=== PATIENT | female | born 2000 | race Caucasian/White ===

== ENCOUNTER → 2020-04-23 15:17 | Outpatient (CLI) | payer OTHER, SELFPAY ==
[2020-04-27 03:06] LABS: Chlamydia By Nucleic Acid AMP Negative (Negative)
[2020-04-27 14:50] LABS: HPV Reflexed? NOT INDICATED
[2020-04-27 15:11] LABS: Gonococcus By Nucleic Acid AMP Negative (Negative)
== END ==
PROVIDERS: Visit Provider Obstetrics & Gynecology
DX: Z34.81 Encounter for supervision of other normal pregnancy, first trimester (principal); Z12.4 Encounter for screening for malignant neoplasm of cervix; Z11.3 Encounter for screening for infections with a predominantly sexual mode of transmission
CPT/HCPCS: 87491; 87591; 88175; G0145

== ENCOUNTER → 2020-04-30 11:23 | Outpatient (CLI) | payer OTHER, SELFPAY ==
[2020-04-30 13:34] LABS: Absolute Lymphocyte Count 1.66 X10^3/uL (0.83-4.51); Absolute Neutrophil Count 5.7 X10^3/uL (2.0-7.7); Basophil# 0.04 X10^3/uL; Basophil% 0.5 % (0-1); Eosinophil# 0.11 X10^3/uL; Eosinophils% 1.3 % (0-5); Lymphocyte # 1.66 X10^3/ul (4.0); Lymphocyte % 20.4 % (19-41); Mean Corp Hgb Conc 33.3 g/dL (32-36); Mean Corpuscular Hgb 28.6 pg (27.0-32.0); Mean Corpuscular Volume 85.9 fL (81-99); Mean Platelet Vol. 10.1 fl (6.2-12.0); Monocyte# 0.66 X10^3/uL; Monocyte% 8.1 % (0-10); NRBC Flagged by Analyzer 0 % (0-5); Neutrophil # 5.65 X10^3/uL (2.7-7.7); Neutrophil % 69.3 % (47-70); Platelet Count 272 K/mm3 (150-450); RBC Distribution Width CV 12.7 % (11.6-14.6); RBC Distribution Width SD 39.5 fl (35.1-43.9); Red Blood Count 4.54 M/mm3 (4.2-5.4); White Blood Count 8.2 K/mm3 (4.4-11.0)
[2020-04-30 14:23] LABS: HIV - WCH Non-Reactive (Nonreactive); Hepatitis B Surface Antigen Non-Reactive (Nonreactive); Hepatitis C Antibody Non-Reactive (Nonreactive); Rubella IgG Reactive (Nonreactive); Syphilis Antibodies Non-reactive
== END ==
PROVIDERS: Visit Provider Obstetrics & Gynecology
DX: Z34.81 Encounter for supervision of other normal pregnancy, first trimester (principal)
CPT/HCPCS: 36415; 85025; 86703; 86762; 86780; 86803; 87086; 87088; 87340

== ENCOUNTER → 2020-09-14 13:30 | Outpatient (CLI) | payer OTHER, SELFPAY ==
[2020-09-14 15:59] LABS: Hematocrit 29.9 % (37-47); Hemoglobin 9.8 g/dL (12.0-15.0); Mean Corp Hgb Conc 32.8 g/dL (32-36); Mean Corpuscular Hgb 28.6 pg (27.0-32.0); Mean Corpuscular Volume 87.2 fL (81-99); Mean Platelet Vol. 9.9 fl (6.2-12.0); Platelet Count 269 K/mm3 (150-450); RBC Distribution Width CV 13.5 % (11.6-14.6); RBC Distribution Width SD 42.6 fl (35.1-43.9); Red Blood Count 3.43 M/mm3 (4.2-5.4); White Blood Count 10.6 K/mm3 (4.4-11.0)
[2020-09-14 16:29] LABS: Glucose Challenge Gest 1H 50g 122 mg/dL (70-140)
== END ==
PROVIDERS: Visit Provider Obstetrics & Gynecology
DX: Z34.83 Encounter for supervision of other normal pregnancy, third trimester (principal)
CPT/HCPCS: 36415; 82950; 85027

== ENCOUNTER → 2020-11-09 | Outpatient (CLI) | payer OTHER, SELFPAY | END | disposition home or self-care (01) | LOC: LABSPEC 14:56 | PROVIDERS: Visit Provider Obstetrics & Gynecology | DX: Z36.85 Encounter for antenatal screening for Streptococcus B (principal) | CPT/HCPCS: 87081 ==

== ENCOUNTER 2020-11-29 06:40 | Outpatient (CLI) | payer OTHER, SELFPAY ==
[2020-11-29 06:50] VITALS: BMI 38.2
[2020-11-29 06:56] VITALS: BP 123/75; PULSE 95; PULSE 99; TEMP 36.4; O2SAT 95
--- NOTE | 2020-12-07 16:12 | PN_ITS ---
Progress Note Term patient presenting to rule out labor. Reports contractions that are becoming closer together. Cervix not dilated. status reassuring. D ischarge home with labor precautions and follow-up this week in office.
== END 2020-11-29 08:45 | disposition home or self-care (01) ==
LOC: WPOUT 06:47 → WP 06:49
PROVIDERS: Referring Provider Student in an Organized Health Care Education/Training Program; Visit Provider Student in an Organized Health Care Education/Training Program
DX: O62.9 Abnormality of forces of labor, unspecified (principal); Z3A.00 Weeks of gestation of pregnancy not specified
CPT/HCPCS: 59025; 59050; 99218; G0378

== ENCOUNTER 2020-12-01 22:50 | Inpatient (IN) | payer OTHER, SELFPAY ==
[2020-12-01 22:23] VITALS: BMI 34.9
--- NOTE | 2020-12-01 22:33 | PCM.HP.BLA ---
History and Physical Date of Admission: 12/01/20 Chief complaint: Leakage of fluid History present illness: 20-year-old G1, P0 at 39 weeks and 6 days with NICHOLAS: 12/02/2020 by LMP arrives with leakage of clear fluid. Denies headache, visual changes, chest pain, shortness of breath, nausea vomiting. Patient states good movement Obstetric history: G1: Current Past medical history: None Medications: vitamin Past surgical history: None Allergies: No known drug allergies Family history: Denies history DVT or PE Review of systems: Besides the above pertinent positives a full review of systems was performed and found to be negative Physical exam: Vitals: Blood pressure 123/75 pulse 95 General: Normal-appearing no acute distress HEENT: Normocephalic atraumatic no cervical of adenopathy Cardiac/respiratory: No use of accessory muscles, nonlabored breathing Abdomen: Soft, nontender, gravid Extremities: No peripheral edema normal peripheral pulses Psych: Normal affect, demeanor nonpressured speech Labs: White blood cell count 11.5 hemoglobin 12.5 hematocrit 37.6% platelets 212. ROM positive. Blood type a positive antibody negative. Assessment plan: 20-year-old at 39 weeks and 6 days spontaneous rupture of membranes Admit labor and delivery CEFM GBS negative Routine orders Anesthesia to see
[2020-12-01 22:36] VITALS: BP 121/65; PULSE 93; TEMP 36.4
[2020-12-01 22:37] VITALS: PULSE 105; O2SAT 94
[2020-12-01] MEDS: 0.9% Saline Lock 10 ML Syringe IV (23:00)
[2020-12-01 23:35] LABS: Absolute Lymphocyte Count 1.71 X10^3/uL (0.83-4.51); Absolute Neutrophil Count 8.3 X10^3/uL (2.0-7.7); Basophil# 0.04 X10^3/uL; Basophil% 0.3 % (0-1); Eosinophil# 0.11 X10^3/uL; Hematocrit 37.6 % (37-47); Hemoglobin 12.5 g/dL (12.0-15.0); Lymphocyte # 1.71 X10^3/ul (0.83-4.51); Lymphocyte % 14.9 % (19-41); Mean Corp Hgb Conc 33.2 g/dL (32-36); Mean Corpuscular Hgb 29.6 pg (27.0-32.0); Mean Corpuscular Volume 89.1 fL (81-99); Mean Platelet Vol. 10.6 fl (6.2-12.0); Monocyte# 1.04 X10^3/uL; NRBC Flagged by Analyzer 0 % (0-5); Neutrophil % 72.2 % (47-70); Platelet Count 212 K/mm3 (150-450); RBC Distribution Width CV 14.7 % (11.6-14.6); RBC Distribution Width SD 46.8 fl (35.1-43.9); Red Blood Count 4.22 M/mm3 (4.2-5.4); White Blood Count 11.5 K/mm3 (4.4-11.0)
[2020-12-01 23:47] VITALS: PULSE 94; O2SAT 96
[2020-12-02] VITALS (71 sets, daily range): BP systolic 88–142; BP diastolic 48–93; PULSE 82–132; RESP 16–18; TEMP 36.3–37; O2SAT 94–100
[2020-12-02 00:13] LABS: ROM Internal Control Test YES-OK TO RESULT pt. (Internal QC)
[2020-12-02 00:14] LABS: ROM Patient Test POSITIVE (Negative)
[2020-12-02] MEDS: Lactated Ringers 1,000 ML 50 ML IV (01:12)
[2020-12-02] MEDS: 0.9% Saline Lock 10 ML Syringe IV ×2 (01:12→15:05)
[2020-12-02] MEDS: Lactated Ringers 500 ML 999 ML IV ×4 (01:14→11:02)
[2020-12-02] MEDS: fentaNYL-bupivacaine (epidural) 100 ML BAG EPIDURAL ×2 (02:38→09:57)
[2020-12-02] MEDS: Lactated Ringers 1,000 ML 200 ML IV ×2 (07:29→13:12)
--- NOTE | 2020-12-02 08:17 | PCM.PN.OB ---
Subjective Subjective Patient comfortable with epidural Objective Data Objective Data Vital Signs: Vital Signs Temp Pulse BP Pulse Ox 98.4 F 114 H 114/65 98 12/02/20 07:35 12/02/20 07:35 12/02/20 07:33 12/02/20 07:35 Weight: 197 lb 3.2 oz Body Mass Index (BMI) 34.9 Intake & Output: Intake and Output for Last 24 Hours 11/30/20 12/01/20 12/02/20 23:59 23:59 23:59 Intake Total 3041.66 / 3041.66 Output Total 700 / 700 Balance 2341.66 / 2341.66 Lab / Micro Data Result Diagrams: 12/01/20 23:00 Labs: Laboratory Results - last 24 hr 12/01/20 23:00: WBC 11.5 H, RBC 4.22, Hgb 12.5, Hct 37.6, MCV 89.1, MCH 29.6, MCHC 33.2, RDW Std Deviation 46.8 H, RDW Coeff of Jared 14.7 H, Plt Count 212, MPV 10.6, Immature Gran % (Auto) 2.600 H, Neut % (Auto) 72.2 H, Lymph % (Auto) 14.9 L, [place] % (Auto) 9.0, Eos % (Auto) 1.0, Baso % (Auto) 0.3, Absolute Neuts (auto) 8.3 H, Absolute Lymphs (auto) 1.71, Nucleated RBC % 0 12/01/20 23:00: Blood Type A POSITIVE, Antibody Screen NEGATIVE 12/01/20 23:50: Vag Amniotic Fld Detect POSITIVE H Micro: Microbiology 12/01/20 23:00 Nasal Secretion SARS-CoV-2 Antigen (Rapid) - Final Physical Exam Const alert, oriented x3, no apparent distress, average body habitus, healthy appearing and well nourished HEENT normocephalic and moist oral mucous membranes Head and Scalp: atraumatic Face and Sinus: normal facial exam Eyes PERRL Resp normal respiratory effort, no retractions and no use of accessory muscles Narrative: Cervical exam: /-2 bulging for bag. AROM thin meconium Extremity normal to inspection, full ROM and no clubbing, cyanosis or edema Psych mental status grossly normal, affect normal, speech normal and activity/motor behavior normal Assessment & Plan (1) : PLAN: Patient seen and examined. For bag noted, AROM for thin meconium. Epidural in place. Continue current management.
--- NOTE | 2020-12-02 11:24 | PCM.PN.OB ---
Subjective Subjective Patient on hands and knees, feeling pressure with contractions Objective Data Objective Data Vital Signs: Vital Signs Temp Pulse BP Pulse Ox 98.2 F 99 92/56 L 100 12/02/20 10:24 12/02/20 10:25 12/02/20 10:23 12/02/20 10:25 Weight: 197 lb 3.2 oz Body Mass Index (BMI) 34.9 Intake & Output: Intake and Output for Last 24 Hours 11/30/20 12/01/20 12/02/20 23:59 23:59 23:59 Intake Total 3041.66 / 3041.66 Output Total 700 / 700 Balance 2341.66 / 2341.66 Lab / Micro Data Result Diagrams: 12/01/20 23:00 Labs: Laboratory Results - last 24 hr 12/01/20 23:00: WBC 11.5 H, RBC 4.22, Hgb 12.5, Hct 37.6, MCV 89.1, MCH 29.6, MCHC 33.2, RDW Std Deviation 46.8 H, RDW Coeff of Jared 14.7 H, Plt Count 212, MPV 10.6, Immature Gran % (Auto) 2.600 H, Neut % (Auto) 72.2 H, Lymph % (Auto) 14.9 L, [place] % (Auto) 9.0, Eos % (Auto) 1.0, Baso % (Auto) 0.3, Absolute Neuts (auto) 8.3 H, Absolute Lymphs (auto) 1.71, Nucleated RBC % 0 12/01/20 23:00: Blood Type A POSITIVE, Antibody Screen NEGATIVE 12/01/20 23:50: Vag Amniotic Fld Detect POSITIVE H Micro: Microbiology 12/01/20 23:00 Nasal Secretion SARS-CoV-2 Antigen (Rapid) - Final Physical Exam Const alert, oriented x3, average body habitus and healthy appearing HEENT normocephalic and moist oral mucous membranes Head and Scalp: atraumatic Face and Sinus: normal facial exam Narrative: Cervical exam: Psych mental status grossly normal, affect normal, speech normal and activity/motor behavior normal Assessment & Plan (1) : PLAN: Arrived with 3-minute deceleration to the 60s, recovered with O2 and hands and knees position. Pushed with patient in hands and knees, heart rate at that time category 1. Reposition patient to supine, continued pushing with patient with category 1 tracing. Based on exam not a candidate for vacuum/forceps assisted vaginal delivery. But with category 1 tracing at this time after resolve deceleration okay to continue pushing, discussed risk benefits alternatives. Discussed need for section if repeat prolonged deceleration occurs. Patient states understanding. We will continue pushing assuming heart rate tolerates pushing.
--- NOTE | 2020-12-02 11:28 | NURSING ---
new ramon placed at this time. previous ramon ballooon being pushed down by head
[2020-12-02] MEDS: Ondansetron 4 MG/2 ML Vial IV (13:13)
--- NOTE | 2020-12-02 13:13 | PCM.PN.OB ---
Subjective Subjective Patient very tired with pushing. Feels pressure with epidural Objective Data Objective Data Vital Signs: Vital Signs Temp Pulse BP Pulse Ox 98.4 F 94 120/60 99 12/02/20 12:01 12/02/20 12:01 12/02/20 11:59 12/02/20 12:01 Weight: 197 lb 3.2 oz Body Mass Index (BMI) 34.9 Intake & Output: Intake and Output for Last 24 Hours 11/30/20 12/01/20 12/02/20 23:59 23:59 23:59 Intake Total 3041.66 / 3041.66 Output Total 2049 / 2049 Balance 991.66 / 991.66 Lab / Micro Data Result Diagrams: 12/01/20 23:00 Labs: Laboratory Results - last 24 hr 12/01/20 23:00: WBC 11.5 H, RBC 4.22, Hgb 12.5, Hct 37.6, MCV 89.1, MCH 29.6, MCHC 33.2, RDW Std Deviation 46.8 H, RDW Coeff of Jared 14.7 H, Plt Count 212, MPV 10.6, Immature Gran % (Auto) 2.600 H, Neut % (Auto) 72.2 H, Lymph % (Auto) 14.9 L, [place] % (Auto) 9.0, Eos % (Auto) 1.0, Baso % (Auto) 0.3, Absolute Neuts (auto) 8.3 H, Absolute Lymphs (auto) 1.71, Nucleated RBC % 0 12/01/20 23:00: Blood Type A POSITIVE, Antibody Screen NEGATIVE 12/01/20 23:50: Vag Amniotic Fld Detect POSITIVE H Micro: Microbiology 12/01/20 23:00 Nasal Secretion SARS-CoV-2 Antigen (Rapid) - Final Physical Exam Const alert, oriented x3, average body habitus, healthy appearing and well nourished HEENT normocephalic and moist oral mucous membranes Head and Scalp: atraumatic Face and Sinus: normal facial exam Eyes PERRL Neck full ROM Narrative: Cervical exam: /0to+1 Psych mental status grossly normal, affect normal, speech normal and activity/motor behavior normal Assessment & Plan (1) : PLAN: Patient seen and examined. Patient greater than 2 hours, patient reports maternal exhaustion cannot push any more. Cervical examination as above. Pelvic examination poor candidate based on narrow pelvis for operative delivery. Educated patient on these findings. Discussed continued pushing versus section, patient states can no longer push desires section. Educated on risk benefits alternatives include but are not limited to visceral or vascular injury, prolonged hospitalization, blood loss need for transfusion, reoperation. Patient stated understanding wish to proceed. All questions were answered consent was signed. now, 2 g Ancef and 500 mg of azithromycin
[2020-12-02] MEDS: Sodium Citrate/Citric Acid 30 ML UDC PO (13:17)
[2020-12-02] MEDS: Cefazolin 2 GM in 0.9% Normal Saline 100 ML IV (13:21)
--- NOTE | 2020-12-02 14:17 | OP.PCM_ITS ---
Details Operative Information Date of Procedure: 12/02/20 Pre-Operative Diagnosis: Term, failure to progress, maternal exhaustion Post-Operative Diagnosis: Term, failure to progress, maternal exhaustion Findings Description of Procedure: Procedure: Primary low transverse section Via Pfannenstiel incision Surgeon: Roland Patel MD Anesthesia: Epidural EBL: 700 cc Urine output: 100 cc IV fluids: 1000 cc Complications: None Specimen: None Findings: Female infant in vertex position, Apgars 8/9. Normal uterus, tubes, and ovaries. Consent: Patient arrived in labor progressed to complete dilation and pushed for greater than 2 hours with maternal exhaustion and failure to progress in need of primary section. Patient understands the risk of the procedure include but are not limited to visceral or vascular injury, prolonged hospitalization, blood loss need for transfusion, reoperation. Patient state understanding and wished to proceed. All questions were answered and consent was signed. Procedure: Patient was brought back to the OR where epidural anesthesia was found to be adequate. 2 g of Ancef and 500 mg of azithromycin were given for infection prophylaxis. Patient was prepared and draped in a supine position with leftward tilt. A Pfannenstiel incision was made at the skin with a scalpel. The incision was carried down to the fascia with a scalpel. The fascia was excised and extended laterally. Inferior aspect of the fascia was grasped with a clamp and the underlying rectus and pyramidalis muscle were dissected off sharply. In a similar fashion the superior aspect of the fascia was grasped clamp and the underlying rectus muscle was dissected off sharply with Sheehan scissors. Rectus muscle was dissected at the midline down to the level of the pubic symphysis. Preperitoneal fatty tissue was noted and peritoneum was extended superiorly and inferiorly with good visualization of bladder. Bladder blade was inserted and vesicouterine peritoneum was identified. Low transverse hysterotomy was made. Hand was placed into the incision, hand from below for assistance was used. Gentle fundal pressure was applied once the head was brought into the incision, head and shoulders were delivered with ease. Cord was cut and clamped. Baby is handed off to nursing. Placenta was delivered via cord traction and fundal massage. IV oxytocin was initiated in order to facilitate uterine contractions. Uterus was exteriorized wiped out with dry laparotomy sponge in order to remove remaining placental membranes. Uterus was closed in a continuous running fash ion. Second layer was performed. Good hemostasis was noted. Uterus was placed back into the abdominal cavity and incision was reinspected. Good hemostasis was noted. Peritoneum was closed in a continuous running fashion. Fascia was closed in a continuous running fashion. Skin was closed in a subcuticular fashion. All counts correct x2. Patient tolerated the procedure well and was brought to recovery in a stable condition.
[2020-12-02] MEDS: Oxytocin 30 units/NS 500 ml 30 UNITS/500 ML IV.SOLN 167 UNITS IV (14:52)
[2020-12-02] MEDS: Ketorolac 30 MG/ML Syringe IV ×2 (15:05→21:31)
--- NOTE | 2020-12-02 17:00 | NURSING ---
epidural catheter removed at this time with blue tip intact. dressing placed over epidural puncture site per policy
[2020-12-02] MEDS: Acetaminophen 500 MG Tablet 1000 MG PO ×2 (17:36→23:26)
[2020-12-03 01:51] VITALS: PULSE 102; RESP 18; O2SAT 96
[2020-12-03 03:35] VITALS: BP 109/55; PULSE 85; RESP 16; TEMP 36.3
[2020-12-03] MEDS: Ketorolac 30 MG/ML Syringe IV ×2 (03:37→09:35)
[2020-12-03] MEDS: Acetaminophen 500 MG Tablet 1000 MG PO ×3 (06:05→18:04)
[2020-12-03 06:23] LABS: Hematocrit 30.1 % (37-47); Mean Corp Hgb Conc 33.2 g/dL (32-36); Mean Corpuscular Hgb 29.6 pg (27.0-32.0); Mean Corpuscular Volume 89.1 fL (81-99); Mean Platelet Vol. 9.7 fl (6.2-12.0); Platelet Count 185 K/mm3 (150-450); RBC Distribution Width CV 14.7 % (11.6-14.6); RBC Distribution Width SD 47.1 fl (35.1-43.9); Red Blood Count 3.38 M/mm3 (4.2-5.4); White Blood Count 18.7 K/mm3 (4.4-11.0)
--- NOTE | 2020-12-03 07:51 | PN.OBGYN_ITS ---
Subjective Subjective No overnight complaints. Pain well controlled. Objective Data Objective Data Vital Signs: Vital Signs Temp Pulse Resp BP Pulse Ox 97.4 F L 85 16 109/55 L 96 12/03/20 03:35 12/03/20 03:35 12/03/20 03:35 12/03/20 03:35 12/03/20 01:51 Oxygen Delivery Method Room Air Weight: 197 lb 3.2 oz Body Mass Index (BMI) 34.9 Intake & Output: Intake and Output for Last 24 Hours 12/01/20 12/02/20 12/03/20 23:59 23:59 23:59 Intake Total 5536.66 / 5536.66 Output Total 2800 / 2800 200 / 200 Balance 2736.66 / 2736.66 -200 / -200 Lab / Micro Data Result Diagrams: 12/03/20 06:10 Labs: Laboratory Results - last 24 hr 12/03/20 06:10: WBC 18.7 H, RBC 3.38 L, Hgb 10.0 L, Hct 30.1 L, MCV 89.1, MCH 29.6, MCHC 33.2, RDW Std Deviation 47.1 H, RDW Coeff of Jared 14.7 H, Plt Count 185, MPV 9.7 Micro: Microbiology 12/01/20 23:00 Nasal Secretion SARS-CoV-2 Antigen (Rapid) - Final Physical Exam Const alert, oriented x3, no apparent distress, average body habitus, healthy appearing and well nourished HEENT normocephalic and moist oral mucous membranes Head and Scalp: atraumatic Face and Sinus: normal facial exam Neck full ROM Resp normal respiratory effort, no retractions and no use of accessory muscles GI normal to inspection, nondistended, normoactive bowel sounds GI Narrative: Bandage clean dry and intact Extremity normal to inspection, full ROM and no clubbing, cyanosis or edema Psych mental status grossly normal, affect normal, speech normal and activity/motor behavior normal Assessment & Plan (1) delivery delivered: PLAN: Postoperative day 1 status post primary section for failure to progress. Pain well controlled. Breast-feeding. Likely discharge home t omorrow
[2020-12-03 08:02] VITALS: BP 125/58; PULSE 97; RESP 16; TEMP 36.7
[2020-12-03] MEDS: Senna/Docusate Sodium 1 Tablet PO (09:34)
[2020-12-03] MEDS: Enoxaparin 40 MG/0.4 ML Syringe SC (09:35)
[2020-12-03] MEDS: 0.9% Saline Lock 10 ML Syringe IV (09:35)
[2020-12-03 12:23] VITALS: BP 113/62; PULSE 93; RESP 16; TEMP 37
[2020-12-03] MEDS: Ibuprofen 600 MG Tablet PO ×2 (15:12→21:06)
[2020-12-03 16:45] VITALS: BP 118/57; PULSE 97; RESP 16; TEMP 37
[2020-12-03 19:25] VITALS: BP 112/60; PULSE 97; RESP 16; TEMP 36.6; O2SAT 100
[2020-12-04] MEDS: Acetaminophen 500 MG Tablet 1000 MG PO ×2 (01:16→06:36)
[2020-12-04 02:00] VITALS: BP 125/62; PULSE 97; RESP 14; TEMP 36.7; O2SAT 100
[2020-12-04] MEDS: Ibuprofen 600 MG Tablet PO ×2 (03:37→09:34)
[2020-12-04 05:25] VITALS: BP 126/53; PULSE 93; RESP 16; O2SAT 97
[2020-12-04 07:30] VITALS: BP 113/65; PULSE 99; RESP 16; TEMP 36.4; O2SAT 96
--- NOTE | 2020-12-04 09:34 | PCM.PN.OB ---
Subjective Subjective No issues overnight. Patient is out of bed and ambulating and voiding without difficulty. She is passing flatus. Reports occasional gas pain, but this is manageable. Denies heavy lochia. She is breast-feeding. Tolerates p.o. Objective Data Objective Data Vital Signs: Vital Signs Temp Pulse Resp BP Pulse Ox 97.5 F L 99 16 113/65 96 12/04/20 07:30 12/04/20 07:30 12/04/20 07:30 12/04/20 07:30 12/04/20 07:30 Oxygen Delivery Method Room Air Weight: 89.448 kg Body Mass Index (BMI) 34.9 Intake & Output: Intake and Output for Last 24 Hours 12/02/20 12/03/20 12/04/20 23:59 23:59 23:59 Intake Total 5536.66 / 5536.66 Output Total 2800 / 2800 500 / 500 Balance 2736.66 / 2736.66 -500 / -500 Lab / Micro Data Result Diagrams: 12/03/20 06:10 Micro: Microbiology 12/01/20 23:00 Nasal Secretion SARS-CoV-2 Antigen (Rapid) - Final Physical Exam Const alert, oriented x3 and no apparent distress Resp normal respiratory effort, normal air movement and clear to auscultation bilaterally Cardio regular rate, regular rhythm, S1 normal heart sound and S2 normal heart sound GI normal to inspection, nondistended, normoactive bowel sounds, soft to palpation, non-tender and non-distended Manual OB Exam: other lochia scant Uterus Palpation: uterus fundus firm Extremity no calf tenderness Assessment & Plan (1) delivery delivered: PLAN: day #2 status post primary section doing well Rh+ Breast-feeding Plan for DC home today
[2020-12-04] MEDS: Enoxaparin 40 MG/0.4 ML Syringe SC (09:35)
[2020-12-04] MEDS: Senna/Docusate Sodium 1 Tablet PO (09:35)
--- NOTE | 2020-12-04 09:35 | PCM.DC ---
Discharge Instructions Diet Discharge Diet: No restrictions Activity Discharge Activity: Return to Normal Activity and May Shower May resume sexual activity in: 4-6 weeks Lifting Restrictions: 10 lb Dressing / Incision Call your doctor if you observe: Using more than 1 pad per hour, Shortness of breath, Chest pain, Calf discomfort, Uncontrolled pain and - (Persistent or severe headache) Suture Line Care: Avoid Pulling/Pushing Remove Dressing in: 4 days Cleanse incision/area with: Soap & Water Follow Up Care Please Follow Up With: Roland Patel MD Test Results: Test results from this visit will be discussed in further detail at your follow-up appointment, if applicable. Discharge Plan Admission Admit Date/Time: 12/01/20 22:50 Primary Reason for Your Visit: section Attending Provider: Roland Patel Primary Care Provider: Care Physician,No Primary Consulting Providers: Alexander Rodriguez Instructions Patient Instructions: After a Discharge Orders/Prescriptions Prescriptions: New ibuprofen 600 mg Tablet 600 mg PO Q8H PRN (Reason: pain) Qty: 30 RF: 0 oxycodone 5 mg Tablet 5 mg PO Q6H PRN (Reason: severe pain) 7 Days Qty: 5 RF: 0 Continued 1 mg Tablet 1 tab PO DAILY RF: 0 Calcium And Magnesium 750-465 mg Tablet 2 tab PO QHS RF: 0 ferrous sulfate [iron] 325 mg (65 mg iron) Tablet 325 mg PO DAILY RF: 0 Referrals / Follow Up: Care Physician,No Primary [Primary Care Provider] - Disposition Disposition (needs filled in before D/C Order can be placed): Home, Self Care
--- NOTE | 2020-12-04 09:42 | PCM.DC.SUM ---
Providers Date of Admission: 12/01/20 Primary Care Physician: Yvrose Primary Care Phys Reason For Visit: LABOR/PRIMARY C SECTION DELIVERY Diagnosis Discharge Diagnosis (1) delivery delivered: Status: Acute Code(s): O82 - Encounter for delivery without indication Medications at Discharge Home Medications [id number] [] 1 tab PO DAILY 11/29/20 calcium-magnesium [Calcium And Magnesium] 2 tab PO QHS 12/01/20 ferrous sulfate [iron] 325 mg PO DAILY 12/01/20 ibuprofen 600 mg PO Q8H PRN #30 tab 12/04/20 oxycodone 5 mg PO Q6H PRN 7 Days #5 tab 12/04/20 Hospital Course Operations section Summary of Care Provided Hospital Course: 20yo G1 admitted at 39 6/7 weeks gestation in labor. She underwent primary Low transverse section for second stage maternal exhaustion and failure to progress after 2 hours pushing. She had an unremarkable postoperative course and was discharged to home on postop day #2. Weight / BMI Weight Weight: 89.448 kg Body Mass Index (BMI) 34.9 ABG / Lab / Microbiology Data Result Diagrams: 12/03/20 06:10 Microbiology: Microbiology 12/01/20 23:00 Nasal Secretion SARS-CoV-2 Antigen (Rapid) - Final D/C Instructions Discharge Diet: No restrictions May resume sexual activity in: 4-6 weeks Call your doctor if you observe: Using more than 1 pad per hour, Shortness of breath, Chest pain, Calf discomfort, Uncontrolled pain and - (Persistent or severe headache) Suture Line Care: Avoid Pulling/Pushing Cleanse incision/area with: Soap & Water Please Follow Up With: Roland Patel MD When: 2 weeks for incision check Meaningful Use Info Meaningful Use Diagnoses (Choose all that apply): None applicable Discharge Plan Admission Admit Date/Time: 12/01/20 22:50 Primary Reason for Your Visit: section Attending Provider: Roland Patel Primary Care Provider: Care Physician,No Primary Consulting Providers: Alexander Rodriguez Instructions Patient Instructions: After a Discharge Orders/Prescriptions Prescriptions: New ibuprofen 600 mg Tablet 600 mg PO Q8H PRN (Reason: pain) Qty: 30 RF: 0 oxycodone 5 mg Tablet 5 mg PO Q6H PRN (Reason: severe pain) 7 Days Qty: 5 RF: 0 Continued 1 mg Tablet 1 tab PO DAILY RF: 0 Calcium And Magnesium 750-465 mg Tablet 2 tab PO QHS RF: 0 ferrous sulfate [iron] 325 mg (65 mg iron) Tablet 325 mg PO DAILY RF: 0 Referrals / Follow Up: Care Physician,No Primary [Primary Care Provider] - Disposition Disposition (needs filled in before D/C Order can be placed): Home, Self Care
== END 2020-12-04 10:38 | disposition home or self-care (01) | DRG 788 ==
LOC: WPOUT 22:52 → WP 22:52
PROVIDERS: Obstetrics & Gynecology; Admitting Provider Obstetrics & Gynecology; Visit Provider Obstetrics & Gynecology
DX: O75.81 Maternal exhaustion complicating labor and delivery (principal); O62.2 Other uterine inertia; O77.0 Labor and delivery complicated by meconium in amniotic fluid; Z37.0 Single live birth; Z3A.39 39 weeks gestation of pregnancy
CPT/HCPCS: 59025; 59050; 84112; 85025; 85027; 86850; 86900; 86901; 87426; 99218; 99251; J7120; A4216; G0378; G0463; J2405

== ENCOUNTER → 2022-01-02 | Outpatient (CLI) | payer OTHER, SELFPAY ==
[2022-01-02 15:49] LABS: Absolute Lymphocyte Count 1.91 X10^3/uL (0.83-4.51); Absolute Neutrophil Count 7.4 X10^3/uL (2.0-7.7); Basophil# 0.03 X10^3/uL; Basophil% 0.3 % (0-1); Eosinophil# 0.15 X10^3/uL; Eosinophils% 1.5 % (0-5); Hematocrit 38.1 % (37-47); Hemoglobin 12.6 g/dL (12.0-15.0); Lymphocyte # 1.91 X10^3/ul (0.83-4.51); Lymphocyte % 18.8 % (19-41); Mean Corp Hgb Conc 33.1 g/dL (32-36); Mean Corpuscular Hgb 28.1 pg (27.0-32.0); Mean Corpuscular Volume 84.9 fL (81-99); Monocyte# 0.66 X10^3/uL; Monocyte% 6.5 % (0-10); NRBC Flagged by Analyzer 0 % (0-5); Neutrophil # 7.39 X10^3/uL (2.7-7.7); Neutrophil % 72.6 % (47-70); Platelet Count 296 K/mm3 (150-450); RBC Distribution Width CV 13.4 % (11.6-14.6); RBC Distribution Width SD 41.1 fl (35.1-43.9); Red Blood Count 4.49 M/mm3 (4.2-5.4); White Blood Count 10.2 K/mm3 (4.4-11.0)
[2022-01-03 08:53] LABS: HIV - WCH Non-Reactive (Nonreactive); Hepatitis B Surface Antigen Non-Reactive (Nonreactive); Hepatitis C Antibody Non-Reactive (Nonreactive); Rubella IgG Reactive (Nonreactive); Syphilis Antibodies Non-reactive
[2022-01-04 17:02] LABS: V-Zoster IgG (Immunity) 575 index (Immune >165)
[2022-01-04 21:07] LABS: Chlamydia By Nucleic Acid AMP Negative (Negative)
[2022-01-05 15:46] LABS: Gonococcus By Nucleic Acid AMP Negative (Negative)
== END | disposition home or self-care (01) ==
LOC: WOBLAB 14:41
PROVIDERS: Visit Provider Obstetrics & Gynecology
DX: Z34.81 Encounter for supervision of other normal pregnancy, first trimester (principal); Z11.3 Encounter for screening for infections with a predominantly sexual mode of transmission
CPT/HCPCS: 36415; 85025; 86703; 86762; 86780; 86787; 86803; 87086; 87088; 87340; 87491; 87591

== ENCOUNTER → 2022-04-28 | Outpatient (CLI) | payer OTHER, SELFPAY ==
[2022-04-28 15:01] LABS: Absolute Lymphocyte Count 1.43 X10^3/uL (0.83-4.51); Absolute Neutrophil Count 7.5 X10^3/uL (2.0-7.7); Basophil# 0.02 X10^3/uL; Basophil% 0.2 % (0-1); Eosinophil# 0.13 X10^3/uL; Eosinophils% 1.3 % (0-5); Hematocrit 33.4 % (37-47); Hemoglobin 11.1 g/dL (12.0-15.0); Lymphocyte # 1.43 X10^3/ul (0.83-4.51); Lymphocyte % 14.4 % (19-41); Mean Corp Hgb Conc 33.2 g/dL (32-36); Mean Corpuscular Hgb 29.2 pg (27.0-32.0); Mean Corpuscular Volume 87.9 fL (81-99); Mean Platelet Vol. 9.5 fl (6.2-12.0); Monocyte# 0.73 X10^3/uL; Monocyte% 7.4 % (0-10); NRBC Flagged by Analyzer 0 % (0-5); Neutrophil # 7.53 X10^3/uL (2.7-7.7); Neutrophil % 75.8 % (47-70); Platelet Count 254 K/mm3 (150-450); RBC Distribution Width CV 14.1 % (11.6-14.6); White Blood Count 9.9 K/mm3 (4.4-11.0)
[2022-04-28 15:36] LABS: Glucose Challenge Gest 1H 50g 116 mg/dL (70-140)
[2022-04-28 16:26] LABS: Syphilis Antibodies Non-reactive
== END | disposition home or self-care (01) ==
LOC: WOBLAB 13:09
PROVIDERS: Visit Provider Obstetrics & Gynecology
DX: Z34.82 Encounter for supervision of other normal pregnancy, second trimester (principal)
CPT/HCPCS: 36415; 82950; 85025; 86780

== ENCOUNTER → 2022-07-11 | Outpatient (CLI) | payer OTHER, SELFPAY ==
[2022-07-11 11:45] LABS: Absolute Lymphocyte Count 1.78 X10^3/uL (0.83-4.51); Absolute Neutrophil Count 6.5 X10^3/uL (2.0-7.7); Basophil# 0.04 X10^3/uL; Basophil% 0.4 % (0-1); Eosinophil# 0.13 X10^3/uL; Eosinophils% 1.4 % (0-5); Hematocrit 31.4 % (37-47); Hemoglobin 10.2 g/dL (12.0-15.0); Lymphocyte # 1.78 X10^3/ul (0.83-4.51); Lymphocyte % 18.8 % (19-41); Mean Corp Hgb Conc 32.5 g/dL (32-36); Mean Corpuscular Hgb 27.1 pg (27.0-32.0); Mean Corpuscular Volume 83.5 fL (81-99); Mean Platelet Vol. 9.8 fl (6.2-12.0); Monocyte# 0.86 X10^3/uL; Monocyte% 9.1 % (0-10); NRBC Flagged by Analyzer 0 % (0-5); Neutrophil % 68.7 % (47-70); Platelet Count 234 K/mm3 (150-450); RBC Distribution Width CV 14.3 % (11.6-14.6); RBC Distribution Width SD 43.4 fl (35.1-43.9); Red Blood Count 3.76 M/mm3 (4.2-5.4); White Blood Count 9.5 K/mm3 (4.4-11.0)
== END | disposition home or self-care (01) ==
LOC: WOBLAB 10:46
PROVIDERS: Visit Provider Nurse Practitioner Women's Health
DX: Z36.85 Encounter for antenatal screening for Streptococcus B (principal); Z34.83 Encounter for supervision of other normal pregnancy, third trimester
CPT/HCPCS: 36415; 85025; 87081

== ENCOUNTER 2022-07-26 04:55 | Inpatient (IN) | payer SELFPAY, OTHER ==
[2022-07-26] VITALS (19 sets, daily range): BP systolic 97–131; BP diastolic 45–79; PULSE 69–105; RESP 14–18; TEMP 36.6–37.2; O2SAT 96–100; BMI 35.5
[2022-07-26] MEDS: Lactated Ringers 1,000 ML 999 ML IV (05:40)
[2022-07-26 05:46] LABS: Absolute Lymphocyte Count 1.68 X10^3/uL (0.83-4.51); Basophil# 0.03 X10^3/uL; Basophil% 0.3 % (0-1); Eosinophil# 0.23 X10^3/uL; Eosinophils% 2.4 % (0-5); Hematocrit 34.2 % (37-47); Hemoglobin 10.6 g/dL (12.0-15.0); Lymphocyte # 1.68 X10^3/ul (0.83-4.51); Lymphocyte % 17.3 % (19-41); Mean Corpuscular Hgb 26.3 pg (27.0-32.0); Mean Corpuscular Volume 84.9 fL (81-99); Mean Platelet Vol. 10.1 fl (6.2-12.0); Monocyte# 0.65 X10^3/uL; Monocyte% 6.7 % (0-10); NRBC Flagged by Analyzer 0 % (0-5); Neutrophil # 7.03 X10^3/uL (2.7-7.7); Neutrophil % 72.2 % (47-70); Platelet Count 207 K/mm3 (150-450); RBC Distribution Width CV 16.2 % (11.6-14.6); RBC Distribution Width SD 48.3 fl (35.1-43.9); Red Blood Count 4.03 M/mm3 (4.2-5.4); White Blood Count 9.7 K/mm3 (4.4-11.0)
[2022-07-26] MEDS: Acetaminophen 500 MG Tablet 1000 MG PO ×3 (06:05→18:10)
[2022-07-26] MEDS: Lactated Ringers 1,000 ML 150 ML IV (06:37)
--- NOTE | 2022-07-26 06:52 | HP.PCM.OB_ITS ---
History and Physical Date of Admission: 07/26/22 Chief complaint: Repeat section History present illness: 22-year-old at 39 weeks and 0 days with NICHOLAS 08/02/2022 arrives for repeat section. Denies headache, vision change, chest pain, shortness of breath, nausea vomit, right upper quadrant pain. Patient states good movement. is complicated by history of section, BMI 35 Obstetric history: G1: Primary section at 40 weeks female 8 pounds 6 ounces G2: Current Past medical history: None Medications: vitamin Allergies: No known drug allergies Past surgical history: section Family history: Denies history DVT or PE Social history: Denies smoking, denies alcohol use, denies drug use Review of systems: Besides above pertinent positives a full review of systems was performed and found to be negative Physical exam: Vitals: Blood pressure 129/79 pulse 105 respiratory rate 16 temperature 97.9 ?F SPO2 97% on room air General: Normal-appearing no acute distress HEENT: Normocephalic/atraumatic no cervical lymphadenopathy Cardiac/respiratory: No use of accessory muscles, nonlabored breathing Abdomen: Soft, nontender, gravid Extremities: No peripheral edema normal peripheral pulses Psych: Normal affect and remainder nonpressured speech Labs: White blood cell count 9.7 hemoglobin 10.6 hematocrit 34.2% platelets 207. Blood type a positive antibody negative Assessment and plan: 22 G2, P1 at 39 weeks and 0 days for repeat section. Patient under stands risk of the procedure include but are not limited to visceral or vascular injury, prolonged hospitalization, blood loss need for transfusion, reoperation. Patient state understanding wish to proceed. All questions were answered and consent was signed.
[2022-07-26] MEDS: Sodium Citrate/Citric Acid 30 ML UDC PO (07:44)
[2022-07-26] MEDS: Cefazolin 2 GM in 0.9% Normal Saline 100 ML IV (07:50)
--- NOTE | 2022-07-26 08:38 | EX.PCM.OBRPT ---
Details Operative Information Date of Procedure: 07/26/22 Pre-Operative Diagnosis: Term, history of section Post-Operative Diagnosis: Term, history of section event av operator #1: Mickey Rolon Findings Description of Procedure: Procedure: Repeat low transverse section Via Pfannenstiel incision Surgeon: Roland Patel MD Anesthesia: Spinal EBL: 700 cc Urine output: 50 cc IV fluids: 1050 cc Complications: None Specimen: None Findings: Female in breech presentation, Apgars 8/9. Normal uterus, tubes, ovaries. Moderate amount of adhesions. Consent: Patient with a history of section elects for repeat low-transverse section via Pfannenstiel incision. Patient understands risk of the procedure include but are not limited to visceral or vascular injury, prolonged hospitalization, blood loss need for transfusion, reoperation. Patient state understanding wish to proceed. All questions were answered and consent was signed. Procedure: Patient was brought back to the OR where spinal anesthesia was found to be adequate. 2 g of Ancef were given for infection prophylaxis. Patient was prepared and draped in a supine position with leftward tilt. A Pfannenstiel incision was made at the skin with a scalpel. The incision was carried down to the fascia with a scalpel. The fascia was excised and extended laterally. Inferior aspect of the fascia was grasped with a clamp and the underlying rectus and pyramidalis muscle were dissected off sharply with Sheehan scissors. In a similar fashion the superior aspect of the fascia was grasped with a clamp and the underlying rectus muscle was dissected off sharply. Rectus muscle was dissected at the midline down to the level of the pubic symphysis. Preperitoneal fatty tissue was noted and peritoneum was entered bluntly. Peritoneum was extended superiorly and inferiorly with good visualization of bladder. Bladder blade was inserted and vesicouterine peritoneum was identified. Via palpation baby was noted to be breech, informed operative team. Low transverse hysterotomy was made. Baby was delivered in standard breech fashion. Cord was clamped and cut. Baby handed off to nursing. IV oxytocin was initiated in order to facilitate uterine contractions. Placenta was delivered via manual extraction. Uterus was exteriorized and wiped out with dry laparotomy sponge in order to remove remaining placental membranes. Uterus was closed in a continuous running fashion. Hemostasis was achieved with [id number] suture and a Bovie. Good hemostasis was noted. Uterus was placed back in the abdominal cavity and the incision was reinspected, good hemostasis was noted. Fascia was closed in a continuous running fashion with PDS suture. Subcutaneous irrigation was performed, good hemostasis was noted. Skin was closed in a subcuticular fashion. Good hemostasis was noted. All counts were correct x2. Patient tolerated procedure well and was brought to recovery in a stable condition.
[2022-07-26] MEDS: Oxytocin 15 Units/NS 250ml 15 UNITS/250 ML IV.SOLN 83 UNITS IV (08:52)
[2022-07-26 09:35] LABS: Syphilis Antibodies Non-reactive
[2022-07-26] MEDS: Ketorolac 30 MG/ML Syringe IV ×3 (09:53→21:13)
[2022-07-26] MEDS: 0.9% Saline Lock 10 ML Syringe IV ×3 (09:53→21:13)
[2022-07-26] MEDS: DiphenhydrAMINE 50 MG/ML Syringe 25 MG IV (10:44)
[2022-07-26] MEDS: Lactated Ringers 1,000 ML 100 ML IV (12:00)
--- NOTE | 2022-07-26 15:51 | NURSING ---
1515-attempted to ambulate patient. Pt c/o dizziness when sitting up. BP 96/63. Pt states she was did not think she could stand. Assisted back to bed. Plan to continue IV fluid another hour, encourage po fluids and reassess in one hour
[2022-07-26] MEDS: Enoxaparin 40 MG/0.4 ML Syringe SC (21:12)
[2022-07-27] MEDS: Acetaminophen 500 MG Tablet 1000 MG PO ×4 (00:07→18:42)
[2022-07-27] MEDS: 0.9% Saline Lock 10 ML Syringe IV (03:01)
[2022-07-27] MEDS: Ketorolac 30 MG/ML Syringe IV (03:01)
[2022-07-27 03:03] VITALS: BP 111/51; PULSE 81; RESP 16; O2SAT 97
[2022-07-27 06:17] LABS: Hematocrit 30.6 % (37-47); Hemoglobin 9.4 g/dL (12.0-15.0); Mean Corp Hgb Conc 30.7 g/dL (32-36); Mean Corpuscular Hgb 26.4 pg (27.0-32.0); Mean Platelet Vol. 9.7 fl (6.2-12.0); Platelet Count 197 K/mm3 (150-450); RBC Distribution Width CV 16.4 % (11.6-14.6); RBC Distribution Width SD 49.9 fl (35.1-43.9); Red Blood Count 3.56 M/mm3 (4.2-5.4); White Blood Count 10.2 K/mm3 (4.4-11.0)
--- NOTE | 2022-07-27 07:36 | PCM.PN.OB ---
Subjective Subjective Pain controlled. Patient is a little sore. Lochia minimal. Breast-feeding. Objective Data Objective Data Vital Signs: Vital Signs Temp Pulse Resp BP Pulse Ox O2 Del Method 97.9 F 81 16 111/51 L 97 Room Air 07/26/22 20:06 07/27/22 03:03 07/27/22 03:03 07/27/22 03:03 07/27/22 03:03 07/27/22 03:03 Oxygen Delivery Method Room Air Weight: 88.11 kg Body Mass Index (BMI) 35.5 Intake & Output: Intake and Output for Last 24 Hours 07/25/22 07/26/22 07/27/22 23:59 23:59 23:59 Intake Total 2730 / 2730 Output Total 1650 / 1650 100 / 100 Balance 1080 / 1080 -100 / -100 Lab / Micro Data Result Diagrams: 07/27/22 06:01 Labs: Laboratory Results - last 24 hr 07/26/22 05:25: Syphilis Total Ab Non-reactive 07/27/22 06:01: WBC 10.2, RBC 3.56 L, Hgb 9.4 L, Hct 30.6 L, MCV 86.0, MCH 26.4 L, MCHC 30.7 L, RDW Std Deviation 49.9 H, RDW Coeff of Jared 16.4 H, Plt Count 197, MPV 9.7 Physical Exam Const alert, oriented x3 and no apparent distress HEENT normocephalic Head and Scalp: atraumatic Neck full ROM Resp normal respiratory effort Cardio regular rate GI normal to inspection, nondistended, normoactive bowel sounds GI Narrative: Uterus 2 cm below umbilicus, dressing clean and dry Back/Spine normal ROM Extremity normal to inspection Extremity Narrative: Minimal pedal edema Neuro no focal motor deficits and no sensory deficits noted Psych mental status grossly normal and affect normal Assessment & Plan (1) Acute postoperative pain: PLAN: Postop day 1 status post repeat section, breech. Pain controlled. Lochia minimal. Breast-feeding. Discharge home today. (2) delivery delivered:
--- NOTE | 2022-07-27 07:37 | DCINST_ITS ---
Discharge Instructions Diet Discharge Diet: No restrictions Activity Discharge Activity: Return to Normal Activity and May Shower May resume sexual activity in: 4-6 weeks Weight Bearing Status: Weight bearing as tolerated Lifting Restrictions: No greater than 25 pounds Dressing / Incision Call your doctor if your incision/area has: Continuous Slow Oozing, Increased Redness and Swelling at the incision site Call your doctor if you observe: Fever of 101 or Higher, Change in Color, Inability to urinate, Using more than 1 pad per hour, Shortness of breath, Dizziness, Swelling in the ankles, Chest pain and Calf discomfort Remove Dressing in: 1 week Cleanse incision/area with: Soap & Water and Keep Dressing Clean & Dry Follow Up Care Please Follow Up With: Roland Patel MD When: 2-week and 6-week visit Test Results: Test results from this visit will be discussed in further detail at your follow- up appointment, if applicable. Discharge Plan Admission Admit Date/Time: 07/26/22 04:55 Primary Reason for Your Visit: section Attending Provider: Roland Patel Primary Care Provider: Care PhysicianYvrose Primary Instructions Additional Instructions / Restrictions: Regular diet. Okay to shower. No tub baths for 2 weeks. No intercourse for 4 to 6 weeks. Call if fevers, chills, chest pain, shortness of breath. Follow-up 2 weeks postoperatively Discharge Orders/Prescriptions Prescriptions: New oxycodone 5 mg tablet 5 mg PO Q6H PRN (Reason: pain (scale score 7-10)) 4 Days Qty: 16 0RF Continued [id number] 1 mg Tablet 1 tab PO DAILY calcium-magnesium 750-465 mg Tablet 2 tab PO QHS ferrous sulfate [iron] 325 mg (65 mg iron) Tablet 325 mg PO DAILY Referrals / Follow Up: Care Physician,No Primary [Primary Care Provider] - Disposition Disposition (needs filled in before D/C Order can be placed): Home, Self Care
[2022-07-27 08:19] VITALS: BP 107/74; PULSE 78; RESP 16; TEMP 36.6
[2022-07-27] MEDS: Ibuprofen 600 MG Tablet PO ×2 (09:46→14:53)
[2022-07-27] MEDS: Senna/Docusate Sodium 1 Tablet PO (12:27)
[2022-07-27 14:27] VITALS: BP 120/78; PULSE 85; RESP 16; TEMP 36.6
[2022-07-27 20:15] VITALS: BP 115/76; PULSE 89; RESP 16; TEMP 36.7
== END 2022-07-27 21:40 | disposition home or self-care (01) | DRG 788 ==
PROVIDERS: Admitting Provider Obstetrics & Gynecology; Referring Provider Obstetrics & Gynecology; Visit Provider Obstetrics & Gynecology
PROC: 10D00Z1 Extraction of Products of Conception, Low, Open Approach (ICD-10-PCS; CPT 59514; principal; 2022-07-26 06:55)
DX: O34.211 Maternal care for low transverse scar from previous cesarean delivery (principal); Z37.0 Single live birth; Z3A.39 39 weeks gestation of pregnancy
CPT/HCPCS: 59025; 59050; 85025; 85027; 86780; 86850; 86900; 86901; 99221; 99252; J7120; A4216; G0378; G0463

== ENCOUNTER → 2025-01-21 | Outpatient (CLI) | payer OTHER, SELFPAY ==
[2025-01-21 17:01] LABS: Hematocrit 39.1 % (37-47); Hemoglobin 12.5 g/dL (12.0-15.0); Immature Granulocytes Count 0.040 X10^3/uL (0.0-0.0); Mean Corp Hgb Conc 32.0 g/dL (32-36); Mean Corpuscular Volume 85.0 fL (81-99); Mean Platelet Vol. 10.1 fl (6.2-12.0); NRBC Flagged by Analyzer 0 % (0-5); Platelet Count 322 K/mm3 (150-450); RBC Distribution Width CV 13.3 % (11.6-14.6); RBC Distribution Width SD 41.2 fl (35.1-43.9); Red Blood Count 4.60 M/mm3 (4.2-5.4); White Blood Count 11.1 K/mm3 (4.4-11.0)
[2025-01-21 17:56] LABS: HIV Nonreactive (Nonreactive); Hepatitis B Surface Antigen Nonreactive (Nonreactive); Hepatitis C Antibody Nonreactive (Nonreactive); Syphilis Antibodies Nonreactive (Nonreactive)
[2025-01-24 06:08] LABS: Chlamydia By Nucleic Acid AMP Negative (Negative); Gonococcus By Nucleic Acid AMP Negative (Negative)
== END | disposition home or self-care (01) ==
PROVIDERS: Visit Provider Student in an Organized Health Care Education/Training Program
DX: O09.90 Supervision of high risk pregnancy, unspecified, unspecified trimester (principal); Z3A.00 Weeks of gestation of pregnancy not specified; O99.210 Obesity complicating pregnancy, unspecified trimester
CPT/HCPCS: 36415; 83036; 85025; 86703; 86762; 86780; 86803; 86850; 86900; 86901; 87086; 87088; 87340; 87491; 87591